=== PATIENT | male | born 1990 | race Caucasian/White ===

== ENCOUNTER 2018-08-18 19:58 | Emergency (ER) | payer SELFPAY ==
[~2018-08-18] VITALS: Ht 182.9 cm; Wt 78.0 kg
[2018-08-18 20:24] VITALS: BP 119/84; PULSE 78; RESP 18; Ht 182.9 cm; Wt 78.0 kg
== END 2018-08-18 21:33 | disposition left against medical advice (07) ==
LOC: FTE 19:58
DX: Z53.21 Procedure and treatment not carried out due to patient leaving prior to being seen by health care provider (principal)